=== PATIENT | male | born 1990 | race Two or more races ===

== ENCOUNTER 2024-06-27 16:22 | Emergency (ER) | payer OTHER ==
[~2024-06-27] VITALS: Ht 182.9 cm; Wt 145.0 kg
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
[2024-06-27] MEDS: ACETAMINOPHEN 325 MG TAB PO ONE (20:13)
[2024-06-27 20:16] VITALS: PULSE 81; RESP 16; O2SAT 99
[2024-06-27 20:20] VITALS: BP 146/79; PULSE 81; RESP 16; TEMP 98.6; O2SAT 99
== END 2024-06-27 20:21 | disposition home or self-care (01) ==
LOC: ER 16:22 → EDBD 16:22 → ER 20:21
DX: S13.4XXA Sprain of ligaments of cervical spine, initial encounter (principal); Z98.890 Other specified postprocedural states; V89.2XXA Person injured in unspecified motor-vehicle accident, traffic, initial encounter; Y93.89 Activity, other specified; Y92.89 Other specified places as the place of occurrence of the external cause; Y99.8 Other external cause status
CPT/HCPCS: 72040; 73070; 73090